=== PATIENT | male | born 1960 | race Caucasian/White ===

== ENCOUNTER 2016-11-29 21:20 | Emergency (ER) | payer OTHER ==
[2016-11-29] MEDS ORDERED: Lidocaine 1% PF 2 ML SDV NERVRT ONE (22:18)
--- NOTE | 2016-11-29 22:31 | EDM.PDOC ---
ED HPI Trauma - General Chief Complaint: Laceration Stated Complaint: cut tip of left middle finger at work about 5pm on side of clean metal stove clened at home soap water tried bandage but could not get it to stop neg numbness tingling loss sensation Time Seen by Provider: 11/29/16 22:17 Source: Reports: Patient History Limitations: Reports: No limitations - History of Present Illness Occurred When: this evening Occurred Where: work Method of Injury: other Severity: mild Associated Symptoms: Reports: no other symptoms Allergies/ADRs: Allergies No Known Allergies Allergy (Verified 01/02/14 10:41) Home Medications: Ambulatory Orders Acetaminophen [Tylenol Extra Strength] 1,000 mg PO ASDIRECTED PRN 01/02/14 [ Confirmed 01/02/14] Ca Cmb No.1/Vit D3/B-6/FA/B12 [Vitamin D3 1,000 Unit] 1,000 mg PO BID 01/02/14 [ Confirmed 01/02/14] Calcium Carbonate [Tums] 1 tab PO ASDIRECTED PRN 01/02/14 [Confirmed 01/02/14] Finasteride [Proscar] 5 mg PO DAILY 01/02/14 [Confirmed 01/02/14] Ibuprofen [Advil] PRN 01/02/14 [Confirmed 01/02/14] Multivitamin with Minerals [Multiple Vitamin] 1 tab PO DAILY 01/02/14 [ Confirmed 01/02/14] Tamsulosin [Tamsulosin 24 Hr] 0.4 mg PO DAILY 01/02/14 [Confirmed 01/02/14] levETIRAcetam [Keppra] 1 tab PO BID 01/02/14 [Confirmed 01/02/14] Past Medical History Musculoskeletal History: Reports: None Immunologic History: Reports: None Dermatologic History: Reports: None (TD with in last 4-5 yrs) Social & Family History - Alcohol Use Days Per Week of Alcohol Use: 0 - Recreational Drug Use Recreational Drug Use: No Review of Systems - Review of Systems Review Of Systems: See Below Constitutional: Reports: no symptoms Musculoskeletal: Reports: no symptoms Skin: Reports: no symptoms. Denies: bruising, change in color Neurological: Reports: No Symptoms. Denies: Numbness, Paresthesia, Tingling, Weakness Psychiatric: Reports: no symptoms Trauma Exam - Physical Exam Exam: See Below Exam Limited By: No limitations General Appearance: Reports: alert, WD/WN, no apparent distress. Denies: mild distress, moderate distress Extremities: Reports: normal range of motion, non-tender, other (exam to left middle finger =sensation pos FDS FDP normal ext 1.5cm x .5cm linear flap lac to distal pad minimal bleeding ) Neurologic: Reports: no motor/sensory deficits, normal mood/affect, oriented x 3 Skin: Reports: Normal color, Warm/dry ED TRAUMA EXTREMITY PROCEDURES - Laceration/Wound Repair Left Anterior Proximal Finger Appearance: subcutaneous, linear, clean Distal NVT: neuro & vascular intact, no tendon injury Anesthetic type: digital Local anesthesia - Lidocaine (Xylocaine): 1% plain Local anesthetic volume: 1cc Skin prep: chlorhexidine (hibiciens), providone-iodine (betadine), saline Saline irrigation (cc's): 250 Exploration/Debridement/Repair: in a bloodless field, minimal debridement Closed with: sutures Suture size: other (5-0 ethilon) Suture type: interrupted # of sutures: 5 Tetanus status addressed: Yes Complications: No Course - Vital Signs Text/Narrative:: area cleanesed with 500ml NS pressure irrigated hebi cleanse betadine call DR Judy bernal will see in clinic call for apt [phone] - Orders/Labs/Meds Meds: Medications Discontinued Medications Generic Name Dose Route Start Last Admin Trade Name Gil PRN Reason Stop Dose Admin Lidocaine HCl 2 ml 11/29/16 22:18 Xylocaine-Mpf 1% NERVRT 11/29/16 22:19 ONETIME ONE Departure - Departure Time of Disposition: 23:00 Disposition: Home, Self-Care 01 Condition: good Clinical Impression: Laceration of finger of left hand Instructions: Laceration Care, Adult - Problem List & Annotations (1) Laceration of finger of left hand SNOMED Code(s): 210570600, 891914537 Code(s): S61.219A - LACERATION W/O FB OF UNSP FINGER W/O DAMAGE TO NAIL, INIT Status: Acute Current Visit: Yes
[2016-11-30 01:28] VITALS: BP 168/87
== END 2016-11-29 23:40 | disposition home or self-care (01) ==
LOC: VM.ED 21:20
DX: S61.231A Puncture wound without foreign body of left index finger without damage to nail, initial encounter (principal); W45.8XXA Other foreign body or object entering through skin, initial encounter; Z79.899 Other long term (current) drug therapy
CPT/HCPCS: 12002; 99282

== ENCOUNTER 2017-04-04 07:22 | Day surgery (SDC) | payer OTHER ==
[~2017-04-04 07:22] MED LIST: Lactated Ringers 1,000 ML IV SCH
[2017-04-04] MEDS ORDERED: Propofol 200 MG/20 ML SDV ONE (08:38)
[2017-04-04] MEDS ORDERED: Midazolam 1 MG/ML 2 ML SDV ONE (08:39)
[2017-04-04] MEDS ORDERED: fentaNYL 100 MCG/2 ML SDV ONE (08:39)
[2017-04-04] MEDS ORDERED: Lidocaine 4% 5 ML Amp ONE (08:55)
[2017-04-04 10:05] VITALS: BP 141/82
--- NOTE | 2017-04-04 13:49 | OR ---
PREOPERATIVE DIAGNOSIS: Gastroesophageal reflux disease with dysphagia. POSTOPERATIVE DIAGNOSES: 1. Active reflux esophagitis with mild esophageal stenosis. 2. Chronic fundal nodules. 3. Mild duodenitis. PLANNED PROCEDURE: Upper gastrointestinal panendoscopy. PROCEDURE DONE: 1. Upper gastrointestinal panendoscopy with antral biopsies. 2. Endoscopic balloon esophageal dilatation. INDICATIONS: This is a 57-year-old gentleman bothered with some GERD type symptoms and some dysphagia. He had a significant episode about 5 weeks ago when some steak got caught in his esophagus. He had quite a time to get that resolved on its own. He comes in now for recommended gastroscopy and this will be his 1st examination. TECHNIQUE: The patient was placed in left lateral decubitus position. His oropharynx was topically anesthetized with Cetacaine spray and he was sedated per DISTRIBUTOR CLEANER with propofol. The flexible gastroscope was then passed transorally and under visualization advanced well into the duodenal. The proximal duodenal revealed some duodenitis. The distal duodenum was normal. The antrum appeared rather unremarkable and some antral biopsies were taken to rule out H. pylori. The proximal stomach did reveal multiple fundal nodules compatible with a chronic gastritis. The GE junction did not reveal any significant hiatal hernia, but he did have definite active reflux esophagitis with inflammation and small ulcerations and some esophageal stenosis which I felt it warranted dilatation. Endoscopic balloon dilatation was then performed by bringing in the balloon and after measuring the actual GE junction, I brought the scope back 5 cm and placed the balloon across the GE junction and used the 18-20 mm dilating balloon going through the stages of 18 mm, 19 mm, and 20 mm with some fracturing of the stenosis with some minor bleeding, felt that a good dilatation was obtained. The scope and balloon were then removed. He tolerated this portion of the procedure well. IMPRESSION: 1. Active gastroesophageal reflux disease with esophageal stenosis dilated to 20 mm. 2. Mild duodenitis and multiple fundal gastric nodules. PLAN: The patient should notice a definite improvement in his swallowing and he should continue taking his Prilosec on a daily basis for 3 months. He needs to avoid caffeine of which he is currently consuming quite a bit and follow up with his family physician as needed. SCM: 04/04/2017 09:32:19 MODL: 04/04/2017 13:34:52 /[id number]
--- NOTE | 2017-04-18 15:53 | LETTER ---
04/18/2017 RE: SUSHILA CHARLTON : 1960 Dear Sushila, The biopsies taken from your stomach revealed no significant abnormality and he also did not have the bacteria that can cause hyperacidity problems known as H. pylori. Hopefully you are starting to feel better. If you have any further questions, I would recommend you contact your family physician for any further evaluation or treatment. Respectfully,
== END 2017-04-04 10:48 | disposition home or self-care (01) ==
LOC: VM.SDS 07:22
PROVIDERS: ATTEND Surgery
DX: K21.0 Gastro-esophageal reflux disease with esophagitis (principal); K22.2 Esophageal obstruction; K29.80 Duodenitis without bleeding; K31.89 Other diseases of stomach and duodenum; F41.9 Anxiety disorder, unspecified; J32.4 Chronic pansinusitis; E78.2 Mixed hyperlipidemia; E66.9 Obesity, unspecified; M19.90 Unspecified osteoarthritis, unspecified site; N40.0 Benign prostatic hyperplasia without lower urinary tract symptoms; R35.1 Nocturia; Z79.899 Other long term (current) drug therapy; Z98.890 Other specified postprocedural states
CPT/HCPCS: 43239; 43249; J2250; J2704; J3010; J7120; C1726

== ENCOUNTER 2019-03-03 08:54 | Day surgery (SDC) | payer OTHER ==
[~2019-03-03 08:54] MED LIST changes: +Sodium Chloride 0.9% 10 ML Syringe FLUSH PRN
[2019-03-03] MEDS ORDERED: Propofol 200 MG/20 ML SDV ONE ×2 (10:31→11:26)
[2019-03-03] MEDS ORDERED: fentaNYL 100 MCG/2 ML SDV ONE (10:31)
[2019-03-03 12:11] VITALS: BP 114/64
--- NOTE | 2019-03-03 12:11 | OR ---
PREOPERATIVE DIAGNOSES: History of polyps, father with colon cancer. POSTOPERATIVE DIAGNOSES: 1. Hepatic flexure polyp x1 removed. 2. Sigmoid diverticulosis. PROCEDURE PROPOSED: Total flexible colonoscopy. PROCEDURE DONE: Total flexible colonoscopy with cold biopsy forceps polypectomy x1. INDICATION: This is a 58-year-old gentleman who comes in for colonic screening due to a family history of colon cancer in his father. He also 10 years ago had some polyps removed. He has been coming in every 5 years. TECHNIQUE: The patient brought to the endoscopy suite, placed in left lateral decubitus position. He was sedated per CARDIAC MONITOR with propofol. A flexible video colonoscope was then passed transanally and under visualization advanced to the cecum. The patient was found to have a normal cecal area, but in the hepatic flexure, he had 1 small polyp removed with 1 bite of the cold biopsy forceps and submitted for pathologic examination. The transverse and descending colon were otherwise unremarkable. The sigmoid colon revealed some diverticulosis, and the rectum was normal. The scope was then withdrawn. The patient tolerated the procedure well. FINAL IMPRESSION: 1. Hepatic flexure polyp x1 removed. 2. Sigmoid diverticulosis. 3. Family history of colon cancer - father. PLAN: The patient will be sent a letter with pathology report. I felt that he should continue to have examinations every 5 years hereafter due to his family history of colon cancer and personal history of polyps. SCM: 03/03/2019 11:40:50 MODL: 03/03/2019 12:05:54 /[id number]
== END 2019-03-03 12:50 | disposition home or self-care (01) ==
LOC: VM.SDS 08:54
PROVIDERS: ATTEND Surgery
DX: Z12.11 Encounter for screening for malignant neoplasm of colon (principal); D12.3 Benign neoplasm of transverse colon; K57.30 Diverticulosis of large intestine without perforation or abscess without bleeding; Z86.010 Personal history of colon polyps; Z80.0 Family history of malignant neoplasm of digestive organs; M19.90 Unspecified osteoarthritis, unspecified site; I10 Essential (primary) hypertension; E78.5 Hyperlipidemia, unspecified; K21.9 Gastro-esophageal reflux disease without esophagitis; G40.309 Generalized idiopathic epilepsy and epileptic syndromes, not intractable, without status epilepticus; F41.9 Anxiety disorder, unspecified; Z87.438 Personal history of other diseases of male genital organs; E66.3 Overweight; Z68.30 Body mass index [BMI] 30.0-30.9, adult; Z79.899 Other long term (current) drug therapy
CPT/HCPCS: J2704; J3010; J7120

== ENCOUNTER 2019-10-12 19:06 | Emergency (ER) | payer OTHER ==
[2019-10-12 19:33] VITALS: BP 140/77; PULSE 69
--- NOTE | 2019-10-12 19:41 | EDM.PDOC ---
ED HPI GENERAL MEDICAL PROBLEM - General Chief Complaint: Lower Extremity Injury/Pain Stated Complaint: FELL ON ICE Time Seen by Provider: 10/12/19 19:20 Source of Information: Reports: Patient, Family History Limitations: Reports: No Limitations - History of Present Illness INITIAL COMMENTS - FREE TEXT/NARRATIVE: Patient states today while outside shoveling snow and ice he slipped landing on the left side of his hip and buttock area states he was able to get back up and walk in the house but since then the muscle in the time but has been getting very tight with a dull throbbing pain. He states he has had to use a cane to get up and move but he can bear weight and walk. He denies any loss of sensation numbness or tingling loss of bowel or bladder no saddle anesthesia He states he did fall back and hit his head when he fell but he had no LOC. He has had no headache no vision change no nausea vomiting he is ate supper tonight with no issues states he feels fine and has had just a tightness in the muscle as stated above. Earlier the pain was about a 7 he took 2 Aleve which helped a lot now it is a 4 /5 more tightness than anything patient pointing from his left buttock around to the thigh area down the lateral aspect of the thigh Onset: Today Duration: Hour(s): Location: Reports: Lower Extremity, Left Quality: Reports: Throbbing, Other (Tightness) Severity: Mild Improves with: Reports: Rest Worsens with: Reports: Movement Treatments COFFEE SHOP ATTENDANT: Reports: Cold Therapy, NSAIDS Left Hip Pain Score (Numeric/FACES): 8 - Related Data Allergies Allergy/AdvReac Type Severity Reaction Status Date / Time No Known Allergies Allergy Verified 03/03/19 09:25 Home Meds: Home Meds Multivitamin with Minerals [Multiple Vitamin] 1 tab PO DAILY 01/02/14 [History] levETIRAcetam [Keppra] 500 mg PO BID 01/02/14 [History] Calcium Carbonate/Vitamin D3 [Calcium 600 + Vit D 200] 1 tab PO DAILY 03/27/17 [ History] Cholecalciferol (Vitamin D3) [Vitamin D3] 1,000 unit PO DAILY 02/27/19 [History] Oxybutynin 1 tab PO DAILY 10/12/19 [History] Past Medical History HEENT History: Reports: Sinusitis, Other (See Below) Other HEENT History: amblyopia Cardiovascular History: Reports: High Cholesterol Respiratory History: Gastrointestinal History: Reports: Other (See Below) Other Gastrointestinal History: ESOPHAGEAL DYSPHAGIA. FM HX OF MALIGNANT NEOPLASM OF GI TRACT Genitourinary History: Reports: BPH, Prostate Disorder, Other (See Below) Other Genitourinary History: HYDROCELE. IMPOTENCE OF ORGANIC ORIGIN. NOCTURIA Musculoskeletal History: Reports: Osteoarthritis, Other (See Below) Other Musculoskeletal History: DJD. HIP PAIN Neurological History: Reports: Seizure Psychiatric History: Endocrine/Metabolic History: Hematologic History: Immunologic History: Oncologic (Cancer) History: Dermatologic History: - Past Surgical History Head Surgeries/Procedures: Reports: None HEENT Surgical History: Reports: None Cardiovascular Surgical History: Reports: None Respiratory Surgical History: Reports: None GI Surgical History: Reports: Colonoscopy Other Female Surgeries/Procedures: PROSTATE SURGERY Male Surgical History: Reports: TURP-Transurethral Resection of Prostate, Other (See Below) Neurological Surgical History: Reports: None Musculoskeletal Surgical History: Reports: Hip Replacement Oncologic Surgical History: Reports: None Review of Systems - Review of Systems Review Of Systems: See Below Constitutional: Reports: No Symptoms Eyes: Reports: No Symptoms Ears: Reports: No Symptoms Nose: Reports: No Symptoms Mouth/Throat: Reports: No Symptoms Respiratory: Reports: No Symptoms Cardiovascular: Reports: No Symptoms GI/Abdominal: Reports: No Symptoms Genitourinary: Reports: No Symptoms Musculoskeletal: Reports: No Symptoms, Leg Pain, Muscle Pain, Muscle Stiffness. Denies: Neck Pain, Shoulder Pain, Back Pain, Joint Pain, Joint Swelling Skin: Reports: No Symptoms Neurological: Reports: No Symptoms, Difficulty Walking. Denies: Confusion, Dizziness, Headache, Numbness, Paresthesia, Pre-Existing Deficit, Seizure, Syncope, Tingling, Weakness, Gait Disturbance Psychiatric: Reports: No Symptoms ED EXAM, GENERAL - Physical Exam Exam: See Below Exam Limited By: No Limitations General Appearance: Alert, WD/WN, No Apparent Distress Eye Exam: Bilateral Eye: EOMI, PERRL Ears: Normal External Exam, Normal Canal, Hearing Grossly Normal, Normal TMs, Other (No hemotympanum) Nose: Normal Inspection, Normal Mucosa, No Blood Throat/Mouth: Normal Inspection, Normal Lips, Normal Teeth, Normal Gums, Normal Oropharynx, Normal Voice, No Airway Compromise Head: Atraumatic, Normocephalic Neck: Normal Inspection, Supple, Non-Tender, Full Range of Motion, Other (No tenderness to palpation midline no step-offs) Respiratory/Chest: No Respiratory Distress, Lungs Clear, Normal Breath Sounds, No Accessory Muscle Use, Chest Non-Tender Cardiovascular: Normal Peripheral Pulses, Regular Rate, Rhythm, No Edema, No Gallop, No JVD, No Murmur GI/Abdominal: Normal Bowel Sounds, Soft, Non-Tender, No Organomegaly, No Distention. No: Guarding, Rigid, Rebound, Tender Back Exam: Normal Inspection, Full Range of Motion. No: Paraspinal Tenderness, Vertebral Tenderness Extremities: Normal Inspection, Normal Range of Motion, No Pedal Edema, Other ( Exam to the left hip patient has full range of motion external and internal flexion and extension he has no tenderness to palpation over the lateral trochanteric area he has mild tenderness to palpation over the left lateral thigh there is no ecchymosis noted he is neurovascularly intact on the left lower extremity he has no pain with compression of the pelvis there is no tenderness to palpation over the L-spine or the sacrum there is no tenderness palpation over the paraspinal no tenderness palpation or ecchymosis or edema noted over the left buttock he has normal dorsiflexion and plantar flexion ). No: Non-Tender Neurological: Alert, Oriented, CN II-XII Intact, Normal Cognition, Normal Reflexes, No Motor/Sensory Deficits Psychiatric: Normal Affect, Normal Mood Skin Exam: Warm, Dry, Intact, Normal Color, No Rash Lymphatic: Other Front/Back Body Diagram: 1 - Patient points to this area with the pain is Course - Vital Signs Text/Narrative:: Patient states he is okay with taking [id number] NSAIDs he will be given a prescription for Robaxin 500 1 p.o. every 8 hours #20 he is also given Robaxin here 1 now 2 for home Patient states he will ice and follow-up with his primary care provider if need be Last Recorded V/S: Last Vital Signs Temp 37.1 C 10/12/19 19:06 Pulse 69 10/12/19 19:06 Resp 16 10/12/19 19:06 BP 140/77 10/12/19 19:06 Pulse Ox 95 10/12/19 19:06 - Orders/Labs/Meds Meds: Medications Discontinued Medications Generic Name Dose Route Start Last Admin Trade Name Gil PRN Reason Stop Dose Admin Methocarbamol 500 mg 10/12/19 19:32 10/12/19 19:43 Robaxin PO 10/12/19 19:33 500 mg ONETIME ONE Administration Methocarbamol 1,000 mg 10/12/19 19:35 10/12/19 19:43 Robaxin PO 10/12/19 19:36 1,000 mg ONETIME ONE Administration Departure - Departure Time of Disposition: 19:40 Disposition: Home, Self-Care 01 Condition: Good Clinical Impression: Contusion, hip and thigh - Discharge Information *PRESCRIPTION DRUG MONITORING PROGRAM REVIEWED*: No *COPY OF PRESCRIPTION DRUG MONITORING REPORT IN PATIENT ROJAS: No Instructions: Contusion, Methocarbamol tablets Referrals: [place] PA-C [Primary Care Provider] - Forms: ED Department Discharge Additional Instructions: You may continue to take Aleve follow directions on the bottle for dosage apply ice to the area 30 minutes on 30 minutes off as much as tolerated for the next 24 to 48 hours Follow-up with your primary care provider in the next 24 to 48 hours Return to the emergency room if anything changes or gets worse Sepsis Event Note - Evaluation Sepsis Screening Result: No Definite Risk - Focused Exam Date Exam was Performed: 10/13/19 Time Exam was Performed: 10:57 - Problem List & Annotations (1) Contusion, hip and thigh SNOMED Code(s): 376372741 Code(s): S70.00XA - CONTUSION OF UNSPECIFIED HIP, INITIAL ENCOUNTER; S70.10XA - CONTUSION OF UNSPECIFIED THIGH, INITIAL ENCOUNTER Status: Acute
[2019-10-12] MEDS: Methocarbamol 500 MG Tab PO ONE ×2 (19:43)
== END 2019-10-12 19:54 | disposition home or self-care (01) ==
LOC: VM.ED 19:06
DX: S70.02XA Contusion of left hip, initial encounter (principal); S70.12XA Contusion of left thigh, initial encounter; W00.0XXA Fall on same level due to ice and snow, initial encounter; Y93.H1 Activity, digging, shoveling and raking
CPT/HCPCS: 99283; A9270-GY

== ENCOUNTER 2021-02-28 19:34 | Emergency (ER) | payer OTHER ==
--- NOTE | 2021-02-28 20:16 | EDM.PDOC ---
ED HPI GENERAL MEDICAL PROBLEM - General Time Seen by Provider: 02/28/21 19:59 Source of Information: Reports: Patient - History of Present Illness INITIAL COMMENTS - FREE TEXT/NARRATIVE: Hermilo is a 60 y/o male who comes to the ER with a tick bite that he had on the back of his left calf. He reports about 11 days ago he had a tick that was stuck on the back of his leg. He is unsure how long it was attached but his pulled it out with a tweezers. It did not appear to have debris left in the wound. He didn't nocie any infection in it until which was a week past the time he removed it. The calf area with mildly red and warm and he was c oncerned about it. No fever. - Related Data Allergies Allergy/AdvReac Type Severity Reaction Status Date / Time No Known Allergies Allergy Verified 03/03/19 09:25 Home Meds: Home Meds Multivitamin with Minerals [Multiple Vitamin] 1 tab PO DAILY 01/02/14 [History] levETIRAcetam [Keppra] 500 mg PO BID 01/02/14 [History] Calcium Carbonate/Vitamin D3 [Calcium 600 + Vit D 200] 1 tab PO DAILY 03/27/17 [History] Cholecalciferol (Vitamin D3) [Vitamin D3] 1,000 unit PO DAILY 02/27/19 [History] Oxybutynin 1 tab PO DAILY 10/12/19 [History] Doxycycline [Vibramycin] 100 mg PO BID #20 cap 02/28/21 [Rx] Past Medical History HEENT History: Reports: Sinusitis, Other (See Below) Other HEENT History: amblyopia Cardiovascular History: Reports: High Cholesterol Respiratory History: Gastrointestinal History: Reports: Other (See Below) Other Gastrointestinal History: ESOPHAGEAL DYSPHAGIA. FM HX OF MALIGNANT NEOPLASM OF GI TRACT Genitourinary History: Reports: BPH, Prostate Disorder, Other (See Below) Other Genitourinary History: HYDROCELE. IMPOTENCE OF ORGANIC ORIGIN. NOCTURIA Musculoskeletal History: Reports: Osteoarthritis, Other (See Below) Other Musculoskeletal History: DJD. HIP PAIN Neurological History: Reports: Seizure Psychiatric History: Endocrine/Metabolic History: Hematologic History: Immunologic History: Oncologic (Cancer) History: Dermatologic History: - Past Surgical History Head Surgeries/Procedures: Reports: None HEENT Surgical History: Reports: None Cardiovascular Surgical History: Reports: None Respiratory Surgical History: Reports: None GI Surgical History: Reports: Colonoscopy Other Female Surgeries/Procedures: PROSTATE SURGERY Male Surgical History: Reports: TURP-Transurethral Resection of Prostate, Other (See Below) Neurological Surgical History: Reports: None Musculoskeletal Surgical History: Reports: Hip Replacement Oncologic Surgical History: Reports: None Social & Family History - Family History Family Medical History: No Pertinent Family History - Caffeine Use Caffeine Use: Reports: None Review of Systems - Review of Systems Review Of Systems: See Below Constitutional: Reports: No Symptoms Eyes: Reports: No Symptoms Ears: Reports: No Symptoms Nose: Reports: No Symptoms Mouth/Throat: Reports: No Symptoms Respiratory: Reports: No Symptoms Cardiovascular: Reports: No Symptoms GI/Abdominal: Reports: No Symptoms Genitourinary: Reports: No Symptoms, Vaginal Bleeding Skin: Reports: Erythema (on posterior left leg in location of tick bite) Neurological: Reports: No Symptoms Psychiatric: Reports: No Symptoms ED EXAM, GENERAL - Physical Exam Exam: See Below Exam Limited By: No Limitations General Appearance: Alert, WD/WN, No Apparent Distress (Adult male) Ears: Hearing Grossly Normal Nose: Normal Inspection Throat/Mouth: Normal Voice Head: Atraumatic, Normocephalic Neck: Normal Inspection Respiratory/Chest: No Respiratory Distress GI/Abdominal: Soft (Male) Exam: Deferred Rectal (Males) Exam: Deferred Back Exam: Normal Inspection Extremities: Other (Note healing wound about 0.5cm in diameter on back of left calf, no drainage or induration noted, but mild erythema extending aroudn the wound about 10 cm.) Psychiatric: Normal Affect, Normal Mood Skin Exam: Warm, Dry, Intact, Normal Color Course - Vital Signs Text/Narrative:: 195 The patient was seen by the PERSONAL LINES ACCOUNT MANAGER. No labs done. Will place him on Doxycycline and then given him an Rx. He was advised if not better to follow up with his PCP. He was given discharge instructions and left the ER in stable condition. - Orders/Labs/Meds Orders: Active Orders 24 hr Category Date Time Status Doxycycline [Take Home: Doxycycline 100 MG, 4 Tab Pack] Med 02/28/21 20:08 Once 1 packet PO ONETIME ONE Departure - Departure Time of Disposition: 20:09 Disposition: Home, Self-Care 01 Condition: Good Clinical Impression: Tick bite of calf Qualifiers: Encounter type: initial encounter Laterality: left Qualified Code(s): S80.862A - Insect bite (nonvenomous), left lower leg, initial encounter; W57.XXXA - Bitten or stung by nonvenomous insect and other nonvenomous arthropods, initial encounter - Discharge Information *PRESCRIPTION DRUG MONITORING PROGRAM REVIEWED*: Not Applicable *COPY OF PRESCRIPTION DRUG MONITORING REPORT IN PATIENT ROJAS: Not Applicable Prescriptions: Doxycycline [Vibramycin] 100 mg PO BID #20 cap Instructions: Tick Bite Information, Adult Referrals: [place] PA-C [Primary Care Provider] - Additional Instructions: -Doxycycline 100mg oral 2x daily-Take 2 capsule tonight, #4(ER) #20(Rx) -Keep the area clean with soap and water. -Monitor for resolution of symptoms. If not improving, follow up with your PCP. -Return to the ER as needed - My Orders Last 24 Hours: My Active Orders 02/28/21 20:08 Doxycycline [Take Home: Doxycycline 100 MG, 4 Tab Pack] 1 packet PO ONETIME ONE - Assessment/Plan Last 24 Hours: My Active Orders 02/28/21 20:08 Doxycycline [Take Home: Doxycycline 100 MG, 4 Tab Pack] 1 packet PO ONETIME ONE Assessment:: 1)Tick Bite Plan: As above
[2021-02-28] MEDS: Take Home: Doxycycline 100 MG Tab, 4 Tab Pack PO ONE (20:17)
[2021-03-01 08:09] VITALS: BP 160/94; PULSE 72
== END 2021-02-28 20:26 | disposition home or self-care (01) ==
LOC: VM.ED 19:34
DX: S80.862A Insect bite (nonvenomous), left lower leg, initial encounter (principal); E78.00 Pure hypercholesterolemia, unspecified; W57.XXXA Bitten or stung by nonvenomous insect and other nonvenomous arthropods, initial encounter
CPT/HCPCS: 99281; 99283; A9270-GY

== ENCOUNTER 2022-05-18 20:43 | Emergency (ER) | payer OTHER ==
[2022-05-18] MEDS ORDERED: Lidocaine 1% 5 ML VIAL INJECT ONE (20:45)
== END 2022-05-18 21:20 | disposition home or self-care (01) ==
LOC: VM.ED 20:43
DX: S41.112A Laceration without foreign body of left upper arm, initial encounter (principal); W22.09XA Striking against other stationary object, initial encounter; Y93.E8 Activity, other personal hygiene
CPT/HCPCS: 12002; 99282; 99283

== ENCOUNTER 2023-09-24 08:47 | Day surgery (SDC) | payer OTHER ==
[~2023-09-24 08:47] MED LIST changes: -Sodium Chloride 0.9% 10 ML Syringe FLUSH PRN
[2023-09-24] MEDS ORDERED: fentaNYL 100 MCG/2 ML SDV ONE (10:27)
[2023-09-24] MEDS ORDERED: Propofol 200 MG/20 ML SDV ONE (10:27)
[2023-09-24 11:47] VITALS: BP 129/78; PULSE 53
== END 2023-09-24 12:20 | disposition home or self-care (01) ==
LOC: VM.SDS 08:47
PROVIDERS: ATTEND Surgery
DX: K20.90 Esophagitis, unspecified without bleeding (principal); I10 Essential (primary) hypertension; E78.2 Mixed hyperlipidemia; N40.1 Benign prostatic hyperplasia with lower urinary tract symptoms; F41.9 Anxiety disorder, unspecified; Z79.899 Other long term (current) drug therapy
CPT/HCPCS: 00731; 43239; J2704; J3010; J7120

== ENCOUNTER 2024-02-25 10:21 | Day surgery (SDC) | payer OTHER ==
[2024-02-25] MEDS: Lactated Ringers 1,000 ML IV SCH (10:50)
[2024-02-25] MEDS ORDERED: Propofol 200 MG/20 ML SDV ONE (11:37)
[2024-02-25] MEDS ORDERED: Midazolam 1 MG/ML 2 ML SDV ONE (11:38)
[2024-02-25] MEDS ORDERED: fentaNYL 100 MCG/2 ML SDV ONE (11:38)
[2024-02-25 12:40] VITALS: BP 141/81; PULSE 56
== END 2024-02-25 13:15 | disposition home or self-care (01) ==
LOC: VM.SDS 10:21
PROVIDERS: ATTEND Surgery
DX: Z12.11 Encounter for screening for malignant neoplasm of colon (principal); D12.0 Benign neoplasm of cecum; Z80.0 Family history of malignant neoplasm of digestive organs; I10 Essential (primary) hypertension; E78.2 Mixed hyperlipidemia; N40.1 Benign prostatic hyperplasia with lower urinary tract symptoms; G47.33 Obstructive sleep apnea (adult) (pediatric); G40.409 Other generalized epilepsy and epileptic syndromes, not intractable, without status epilepticus; E66.9 Obesity, unspecified; Z68.32 Body mass index [BMI] 32.0-32.9, adult; Z79.899 Other long term (current) drug therapy
CPT/HCPCS: 00811; 45384; J2250; J2704; J3010; J7120